=== PATIENT | male | born 1985 | race Caucasian/White ===

== ENCOUNTER → 2018-04-01 16:01 | Outpatient (CLI) | payer OTHER, SELFPAY ==
--- NOTE | 2018-04-01 16:03 | DI.US.S_ITS ---
PROCEDURE: US ABDOMEN LIMITED INDICATIONS: Soft tissue mass right LQ inguinal area TECHNIQUE: Real-time focused scanning was performed of the abdomen, with image documentation. COMPARISON: None. FINDINGS: Isoechoic mass is present within the subcutaneous soft tissues of the right inguinal region measuring 3.2 x 1.7 x 2.0 cm. IMPRESSION: Subcutaneous isoechoic avascular mass within the subcutaneous soft tissues of the right inguinal canal which may represent a lipoma given the appearance, although findings are nonspecific and differential include both benign or malignant etiology. Recommend clinical correlation and followup. Dictated by: Alexei SHEETS Interpreted: Alex Santos MD on 04/01/2018 at 16:37 Approved by: Aelx Santos M.D. on 04/01/2018 at 16:49
== END ==
PROVIDERS: PCP Physician Assistant; Visit Provider Physician Assistant
DX: M79.9 Soft tissue disorder, unspecified (principal); R22.2 Localized swelling, mass and lump, trunk
CPT/HCPCS: 76705

== ENCOUNTER 2018-12-22 10:21 | Emergency (ER) | payer OTHER, SELFPAY ==
--- NOTE | 2018-12-22 10:29 | DI.RAD.S_ITS ---
PROCEDURE: XR KNEE RT 3V INDICATIONS: injury pain TECHNIQUE: 3 views of the knee were acquired. COMPARISON: None. FINDINGS: Bones: No fractures or dislocations. No suspicious bony lesions. Soft tissues: Moderate-sized suprapatellar joint effusion. No suspicious soft tissue calcifications. IMPRESSION: Moderate-sized joint effusion without underlying fracture or dislocation. Consider outpatient MRI for further evaluation if there is persistent clinical concern for internal soft tissue derangement. Dictated by: Derek Banks M.D. on 12/22/2018 at 11:26 Approved by: Derek Banks M.D. on 12/22/2018 at 11:26
[2018-12-22 10:30] VITALS: BP 130/88; PULSE 75; RESP 16; TEMP 37.1; O2SAT 97; BMI 41.5
--- NOTE | 2018-12-22 10:42 | ED.LOWEXIN ---
HPI - Extremity Injury (Lower) General Chief Complaint: Extremity Injury, Lower Stated Complaint: RT KNEE PAIN Time Seen by Provider: 12/22/18 10:42 Source: patient Mode of arrival: ambulatory Limitations: no limitations History of Present Illness HPI Narrative: The patient torqued his right knee stepping out of his truck yesterday. He is unsure what happened but he felt like the knee with the wrong way, he is not sure which way the knee twisted. He continued to work yesterday. His pain and swelling to the right knee now, he cannot stand and walk. He has swelling to the knee, he has no prior injuries to the knee. Is no numbness or weakness in the right leg. There were no other injuries. Related Data Home Medications Medication Instructions Recorded Confirmed ibuprofen 800 mg PO PRN PRN #0 09/04/17 Previous Rx's Medication Instructions Recorded dextroamphetamine-amphetamine ER 10 mg PO QAM #10 cap 03/25/18 10 mg 24hr capsule,extend release fenofibrate micronized 134 mg 134 mg PO HS #90 cap 03/25/18 capsule ibuprofen 800 mg PO Q6-8H PRN #60 tab 12/22/18 Allergies Allergy/AdvReac Type Severity Reaction Status Date / Time No Known Drug Allergies Allergy Verified 12/22/18 10:30 Review of Systems Constitutional Denies chills, Denies fever(s), Denies lethargy and Denies weakness Musculoskeletal Denies numbness and Reports other (Right knee pain and swelling) Integumentary/Breasts Denies lesions and Denies rash Neurologic Denies numbness and Denies weakness [facility] Medical History Morbid obesity with BMI of 40.0-44.9, adult (Acute) ADHD (attention deficit hyperactivity disorder) (Chronic Unknown) Hyperlipemia (Chronic Unknown) Surgical History History of tonsillectomy Family History Mother Age: 49 Skin cancer of face Cerebrovascular accident (CVA), unspecified mechanism Social History Smoking Status: Never smoker Family History Mother Age: 49 Skin cancer of face Cerebrovascular accident (CVA), unspecified mechanism Social History Smoking Status: Never smoker Exam Initial Vital Signs Initial Vital Signs: Vital Signs Temperature 98.8 F 12/22/18 10:30 Pulse Rate 75 12/22/18 10:30 Respiratory Rate 16 12/22/18 10:30 Blood Pressure 130/88 12/22/18 10:30 Pulse Oximetry 97 12/22/18 10:30 Const General: cooperative and well developed Nutritional Appearance: well nourished Orientation: alert, awake and oriented x3 Extrem General: full ROM, no pedal edema and no calf tenderness Other: The right knee is tender and swollen. Range of motion is 0-90 degrees. There is no ACL laxity. Anterior drawer is negative. He has no MCL tenderness. He has LCL tenderness without laxity. The tenderness is in the joint line. Procedures Orthopedic Splinting/Casting Injury #1: Side: right Lower Extremity Injury Location: knee Lower Extremity Immobilizer: knee immobilizer Post splinting neuro exam: intact Post splinting vascular exam: intact Placed by: Nursing Course Orders Ordered: ED Orders 12/22/18 10:29 XR knee RT 3V Stat Discontinued Medications Ketorolac Tromethamine (Toradol) 60 mg IM NOW ONE Stop: 12/22/18 11:38 Last Admin: 12/22/18 11:55 Dose: 60 mg Vital Signs - 8 hr 12/22/18 10:30 12/22/18 12:12 Temperature 98.8 F Pulse Rate 75 86 Respiratory Rate 16 16 Blood Pressure 130/88 Blood Pressure [Right Arm] 114/71 Pulse Oximetry 97 98 MDM - Extremity Injury (Lower) Imaging Data Right knee XR:: Radiologist's impression: [address] [address] XRay Report Signed Patient: Kia Card#: [id number] : 1985Acct:[id number] Age/Sex: 33 / MDate of Service: 12/22/18 Loc: ED Accession Number: [id number] Procedure: XR knee RT 3V Ordering Provider: Juan Carlos Villarreal M.D. PROCEDURE: XR KNEE RT 3V INDICATIONS: injury pain TECHNIQUE: 3 views of the knee were acquired. COMPARISON: None. FINDINGS: Bones: No fractures or dislocations. No suspicious bony lesions. Soft tissues: Moderate-sized suprapatellar joint effusion. No suspicious soft tissue calcifications. IMPRESSION: Moderate-sized joint effusion without underlying fracture or dislocation. Consider outpatient MRI for further evaluation if there is persistent clinical concern for internal soft tissue derangement. Dictated by: Derek Banks M.D. on 12/22/2018 at 11:26 Approved by: Derek Banks M.D. on 12/22/2018 at 11:26 Discharge Plan Departure Patient Disposition: Home Clinical Impression: Sprain of LCL (lateral collateral ligament) of knee Qualifiers: Encounter type: initial encounter Laterality: right Qualified Code(s): S83.421A - Sprain of lateral collateral ligament of right knee, initial encounter Instructions: DI for Knee Sprain Activity Restrictions/Additional Instructions: Keep the knee immobilizer for the next several days, until you feel you have improved. Apply ice to the knee frequently for the next 2 days. Motrin 8 milligrams every 6 hours as needed for pain. Follow-up with her doctor next week, or the local orthopedic surgeon. I will give you contact information for Dr. Finnegan. Return to the ER as needed. Prescriptions: New ibuprofen 800 mg tablet 800 mg PO Q6-8H PRN (Reason: pain) Qty: 60 RF: 0 No Action fenofibrate micronized 134 mg capsule 134 mg PO HS Qty: 90 RF: 3 dextroamphetamine-amphetamine [Adderall XR] 10 mg capsule,extended release 24hr 10 mg PO QAM Qty: 10 RF: 0 ibuprofen 800 MG tablet 800 mg PO PRN PRNQty: 0 RF: 0 Referrals: Aurora Kohler PA-C [Primary Care Provider] - Jus Finnegan MD [Physician] - Stand Alone Forms: Work Release Note
--- NOTE | 2018-12-22 11:10 | PC.NURSE ---
Possible hyperextension injury since yesterday day at work. Noticed swelling in around the patella and c/o pain with movements, wt bearing. +CMS intact.
[2018-12-22] MEDS: KETOROLAC 60 MG/2 ML VIAL IM (11:55)
[2018-12-22 12:12] VITALS: BP 114/71; PULSE 86; RESP 16; O2SAT 98
--- NOTE | 2018-12-22 13:35 | PC.NURSE ---
1336 left ms for pt that they left without their written prescription, asked for them to call us
--- NOTE | 2018-12-22 14:32 | PC.NURSE ---
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
== END 2018-12-22 12:51 | disposition home or self-care (01) ==
PROVIDERS: Emergency Provider Emergency Medicine; PCP Physician Assistant
DX: S83.421A Sprain of lateral collateral ligament of right knee, initial encounter (principal); W18.43XA Slipping, tripping and stumbling without falling due to stepping from one level to another, initial encounter; Y99.0 Civilian activity done for income or pay
CPT/HCPCS: 73562; 96372; 99283; J1885

== ENCOUNTER → 2019-03-05 12:09 | Outpatient (CLI) | payer BC, SELFPAY ==
--- NOTE | 2019-03-05 12:19 | DI.RAD.S_ITS ---
PROCEDURE: XR ELBOW RT MIN 3V INDICATIONS: acute pain, swelling TECHNIQUE: 3 views of the elbow were acquired. COMPARISON: None. FINDINGS: Suboptimal evaluation secondary to difficulty with patient positioning, reportedly due to severe pain Bones: No fractures or dislocations. No suspicious bony lesions. Soft tissues: No elbow joint effusion. No suspicious soft tissue calcifications. IMPRESSION: No fracture. If the patient's symptoms do not improve recommend followup radiographs in 10 days to assess for healing sclerosis/occult injury. Dictated by: Josh Mariee M.D. on 03/05/2019 at 16:30 Approved by: Josh Mariee M.D. on 03/05/2019 at 16:31
[2019-03-05 12:59] LABS: Add Manual Diff / Slide Review NO; Basophils Absolute Auto 100 /uL (0-100); Eosinophils Absolute Auto 100 /uL (0-450); Eosinophils Percent Auto 0.8 % (2-4); Hematocrit 41.9 % (41-53); Lymphocytes Absolute Auto 2000 /uL (1100-4500); Lymphocytes Percent Auto 17.8 % (25-40); Mean Corpuscular HGB Conc 33.5 % (30-36); Mean Corpuscular Hemoglobin 27.8 PG (26-34); Mean Corpuscular Volume 83.1 fL (80-100); Monocytes Absolute Auto 800 /uL (0-900); Monocytes Percent Auto 6.9 % (3-14); Neutrophils Absolute Auto 8300 /uL (1500-7000); Neutrophils Percent Auto 73.5 % (50-75); Platelet Count 285 X10^3/uL (150-400); Red Blood Cell Count 5.04 X10^6/uL (4.5-5.9); Red Cell Distribution Width 14.6 % (11.6-14.8); White Blood Cell Count 11.4 X10^3/uL (4.5-11.0)
[2019-03-05 13:52] LABS: Uric Acid 9.4 mg/dL (3.5-8.5)
[2019-03-05 14:00] LABS: Erythrocyte Sedimentation Rate 42 MM/HR (0-15)
== END ==
PROVIDERS: PCP Physician Assistant; Visit Provider Nurse Practitioner Family
DX: M25.421 Effusion, right elbow (principal); M25.521 Pain in right elbow
CPT/HCPCS: 36415; 73080; 84550; 85025; 85651; 86140

== ENCOUNTER → 2020-02-20 11:32 | Outpatient (CLI) | payer BC, SELFPAY ==
[2020-02-20 12:07] LABS: Alanine Aminotransferase 89 IU/L (<50); Albumin 4.9 g/dL (3.5-5.0); Albumin Globulin Ratio 1.4 (1.0-2.8); Alkaline Phosphatase 77 U/L (38-126); Aspartate Aminotransferase 46 IU/L (17-59); BUN Creatinine Ratio 19.5 (6-22); Bilirubin Total 0.5 mg/dL (0.2-1.3); Blood Urea Nitrogen 15 mg/dL (9-20); Calcium 9.9 mg/dL (8.4-10.2); Carbon Dioxide 28 mmol/L (22-32); Chloride 103 mmol/L (98-107); Estimated Glomerular Filt Rate > 60.0 mL/min (>60); Globulin 3.4 g/dL (1.7-4.1); Glucose 101 mg/dL (70-100); HEMOLYSIS < 15 (0-50); Potassium 4.3 mmol/L (3.4-5.1); Sodium 139 mmol/L (137-145); Total Protein 8.3 g/dL (6.3-8.2)
[2020-02-20 12:22] LABS: Erythrocyte Sedimentation Rate 36 MM/HR (0-15)
== END ==
PROVIDERS: PCP Family Medicine; Referring Provider Family Medicine; Visit Provider Family Medicine
DX: M10.9 Gout, unspecified (principal)
CPT/HCPCS: 36415; 80053; 84550; 85651

== ENCOUNTER → 2022-09-04 14:55 | Outpatient (CLI) | payer BC, SELFPAY ==
[2022-09-04 15:41] LABS: Add Manual Diff / Slide Review NO; Basophils Absolute Auto 100 /uL (0-100); Basophils Percent Auto 0.7 % (0-2); Eosinophils Absolute Auto 100 /uL (0-450); Eosinophils Percent Auto 1.3 % (2-4); Hematocrit 40.5 % (41-53); Hemoglobin 13.5 g/dL (13.5-17.5); Lymphocytes Absolute Auto 2400 /uL (1100-4500); Lymphocytes Percent Auto 24.2 % (25-40); Mean Corpuscular HGB Conc 33.3 % (30-36); Mean Corpuscular Hemoglobin 27.6 PG (26-34); Mean Corpuscular Volume 82.8 fL (80-100); Monocytes Absolute Auto 600 /uL (0-900); Monocytes Percent Auto 6.3 % (3-14); Neutrophils Absolute Auto 6600 /uL (1500-7000); Neutrophils Percent Auto 67.5 % (50-75); Platelet Count 404 X10^3/uL (150-400); Red Blood Cell Count 4.89 X10^6/uL (4.5-5.9); Red Cell Distribution Width 13.9 % (11.6-14.8); White Blood Cell Count 9.8 X10^3/uL (4.5-11.0)
[2022-09-04 15:58] LABS: Erythrocyte Sedimentation Rate 3 MM/HR (0-15)
[2022-09-04 16:03] LABS: Alanine Aminotransferase 69 IU/L (<50); Albumin 4.6 g/dL (3.5-5.0); Albumin Globulin Ratio 1.2 (1.0-2.8); Alkaline Phosphatase 80 U/L (38-126); Aspartate Aminotransferase 38 IU/L (17-59); BUN Creatinine Ratio 20.2 (6-22); Bilirubin Total 0.5 mg/dL (0.2-1.3); Blood Urea Nitrogen 17 mg/dL (9-20); Calcium 9.2 mg/dL (8.4-10.2); Carbon Dioxide 29 mmol/L (22-32); Chloride 103 mmol/L (98-107); Cholesterol 214 mg/dL (140-199); Estimated Glomerular Filt Rate > 60 mL/min (>60); Globulin 3.9 g/dL (1.7-4.1); Glucose 95 mg/dL (70-100); HDL Cholesterol 26 mg/dL (40-60); HEMOLYSIS < 15 (0-50); LDL Cholesterol Calculated 126 mg/dL (<100); Potassium 3.8 mmol/L (3.4-5.1); Sodium 142 mmol/L (137-145); Total Protein 8.5 g/dL (6.3-8.2); Triglycerides 309 mg/dL (35-150); Uric Acid 10.8 mg/dL (3.5-8.5)
[2022-09-04 16:32] LABS: TSH w/ Reflex to FT4 2.38 uIU/mL (0.47-4.68)
== END ==
PROVIDERS: PCP Family Medicine; Referring Provider Family Medicine; Visit Provider Family Medicine
DX: E78.1 Pure hyperglyceridemia (principal); M10.9 Gout, unspecified
CPT/HCPCS: 36415; 80053; 80061; 84443; 84550; 85025; 85651

== ENCOUNTER → 2023-05-30 07:50 | Outpatient (CLI) | payer OTHER, BC, SELFPAY ==
--- NOTE | 2023-05-30 07:52 | DI.RAD.S_ITS ---
PROCEDURE: XR SHOULDER LT MIN 2V INDICATIONS: fall on left shoulder TECHNIQUE: 3 views of the shoulder were acquired. COMPARISON: None. FINDINGS: Bones: No fractures or dislocations. No suspicious bony lesions. Visualized ribs appear intact. Soft tissues: No suspicious soft tissue calcifications. IMPRESSION: Unremarkable radiographic examination of left shoulder. Dictated by: Francisco Javier Keen M.D. on 05/30/2023 at 15:24 Approved by: Francisco Javier Keen M.D. on 05/30/2023 at 15:24
== END ==
PROVIDERS: PCP Family Medicine; Referring Provider Nurse Practitioner Family; Visit Provider Nurse Practitioner Family
DX: S46.912A Strain of unspecified muscle, fascia and tendon at shoulder and upper arm level, left arm, initial encounter (principal); W19.XXXA Unspecified fall, initial encounter
CPT/HCPCS: 73030

== ENCOUNTER → 2023-12-06 13:48 | Outpatient (CLI) | payer OTHER, SELFPAY ==
--- NOTE | 2023-12-06 13:49 | DI.RAD.S_ITS ---
PROCEDURE: XR ANKLE RT MIN 3V INDICATIONS: R heel pain/strain, ankle pain TECHNIQUE: 3 views of the ankle were acquired. COMPARISON: None. FINDINGS: Bones: No fractures or dislocations. Ankle mortise is normally aligned. No suspicious bony lesions. Soft tissues: No tibiotalar joint effusion. Achilles tendon appears normal. IMPRESSION: No acute bony abnormality or significant effusion. Dictated by: Melida Oliva MD, PhD on 12/06/2023 at 14:17 Approved by: Melida Oliva MD, PhD on 12/06/2023 at 14:17
== END ==
PROVIDERS: PCP Family Medicine; Referring Provider Physician Assistant Surgical; Visit Provider Physician Assistant Surgical
DX: M79.671 Pain in right foot (principal)
CPT/HCPCS: 73610

== ENCOUNTER → 2023-12-17 11:03 | Outpatient (CLI) | payer OTHER, SELFPAY ==
[2023-12-17 12:11] LABS: Alanine Aminotransferase 73 IU/L (<50); Albumin 4.7 g/dL (3.5-5.0); Albumin Globulin Ratio 1.3 (1.0-2.8); Alkaline Phosphatase 88 U/L (38-126); Aspartate Aminotransferase 37 IU/L (17-59); BUN Creatinine Ratio 23.4 (6-22); Bilirubin Total 0.5 mg/dL (0.2-1.3); Blood Urea Nitrogen 18 mg/dL (9-20); Calcium 9.7 mg/dL (8.4-10.2); Carbon Dioxide 22 mmol/L (22-32); Chloride 104 mmol/L (98-107); Estimated Glomerular Filt Rate > 60 mL/min (>60); Globulin 3.7 g/dL (1.7-4.1); Glucose 95 mg/dL (70-100); HEMOLYSIS < 15 (0-50); Potassium 4.8 mmol/L (3.4-5.1); Sodium 139 mmol/L (137-145); Total Protein 8.4 g/dL (6.3-8.2); Uric Acid 10.1 mg/dL (3.5-8.5)
[2023-12-17 12:26] LABS: Erythrocyte Sedimentation Rate 10 MM/HR (0-15)
== END ==
PROVIDERS: PCP Family Medicine; Referring Provider Family Medicine; Visit Provider Family Medicine
DX: M10.9 Gout, unspecified (principal); M76.60 Achilles tendinitis, unspecified leg
CPT/HCPCS: 36415; 80053; 83036; 84550; 85651

== ENCOUNTER → 2024-04-28 13:49 | Outpatient (CLI) | payer OTHER, SELFPAY ==
--- NOTE | 2024-04-28 13:50 | DI.RAD.S_ITS ---
PROCEDURE: XR KNEE RT 3V INDICATIONS: Right knee pain TECHNIQUE: 3 views of the knee were acquired. COMPARISON: [facility], , XR KNEE RT 3V, 12/22/2018, 10:38. FINDINGS: Bones: Possible early arthrosis. No high-grade degenerative changes. No acute displaced fracture or dislocation. Soft tissues: Slight lateral patellar tilt. Moderate joint effusion. IMPRESSION: Possible early arthrosis. No acute radiographic abnormality. Moderate joint effusion, raising concern for internal derangement, which could be further evaluated with MRI. Slight lateral patellar tilt. Dictated by: Edward Rollins M.D. on 04/28/2024 at 14:15 Approved by: Edward Rollins M.D. on 04/28/2024 at 14:16
== END ==
PROVIDERS: PCP Family Medicine; Referring Provider Registered Nurse; Visit Provider Registered Nurse
DX: M25.561 Pain in right knee (principal); M25.461 Effusion, right knee
CPT/HCPCS: 73562

== ENCOUNTER → 2024-09-26 08:26 | Outpatient (CLI) | payer OTHER, SELFPAY ==
[2024-09-26 09:41] LABS: Add Manual Diff / Slide Review NO; Basophils Absolute Auto 100 /uL (0-100); Basophils Percent Auto 0.5 % (0-2); Eosinophils Absolute Auto 200 /uL (0-450); Eosinophils Percent Auto 1.8 % (2-4); Hematocrit 42.2 % (41-53); Hemoglobin 14.4 g/dL (13.5-17.5); Lymphocytes Absolute Auto 2100 /uL (1100-4500); Lymphocytes Percent Auto 22.6 % (25-40); Mean Corpuscular Hemoglobin 28.9 PG (26-34); Mean Corpuscular Volume 84.9 fL (80-100); Monocytes Absolute Auto 600 /uL (0-900); Monocytes Percent Auto 6.5 % (3-14); Neutrophils Absolute Auto 6400 /uL (1500-7000); Neutrophils Percent Auto 68.6 % (50-75); Platelet Count 282 X10^3/uL (150-400); Red Blood Cell Count 4.97 X10^6/uL (4.5-5.9); Red Cell Distribution Width 14.8 % (11.6-14.8); White Blood Cell Count 9.3 X10^3/uL (4.5-11.0)
[2024-09-26 11:03] LABS: Alanine Aminotransferase 108 IU/L (<50); Albumin 4.3 g/dL (3.5-5.0); Albumin Globulin Ratio 1.3 (1.0-2.8); Alkaline Phosphatase 92 U/L (38-126); Aspartate Aminotransferase 73 IU/L (17-59); BUN Creatinine Ratio 18.7 (6-22); Bilirubin Total 0.4 mg/dL (0.2-1.3); Blood Urea Nitrogen 14 mg/dL (9-20); Calcium 9.2 mg/dL (8.4-10.2); Carbon Dioxide 26 mmol/L (22-32); Chloride 106 mmol/L (98-107); Cholesterol 221 mg/dL (140-199); Estimated Glomerular Filt Rate > 60 mL/min (>60); Globulin 3.2 g/dL (1.7-4.1); Glucose 116 mg/dL (70-100); HDL Cholesterol 25 mg/dL (40-60); HEMOLYSIS < 15 (0-50); LDL Cholesterol Calculated 140 mg/dL (<100); Potassium 4.2 mmol/L (3.4-5.1); Sodium 139 mmol/L (137-145); Total Protein 7.5 g/dL (6.3-8.2); Triglycerides 281 mg/dL (35-150); Uric Acid 6.7 mg/dL (3.5-8.5)
[2024-09-26 11:09] LABS: Erythrocyte Sedimentation Rate 35 MM/HR (0-15)
== END ==
PROVIDERS: PCP Family Medicine; Referring Provider Family Medicine; Visit Provider Family Medicine
DX: M1A.00X0 Idiopathic chronic gout, unspecified site, without tophus (tophi) (principal); E78.1 Pure hyperglyceridemia
CPT/HCPCS: 36415; 80053; 80061; 84550; 85025; 85651

== ENCOUNTER → 2025-08-22 10:49 | Outpatient (CLI) | payer OTHER, SELFPAY ==
[2025-08-22 11:46] LABS: Hemoglobin A1C% w Est Avg Glu 6.2 % (4.0-6.0)
[2025-08-22 12:23] LABS: Alanine Aminotransferase 110 IU/L (<50); Albumin 4.6 g/dL (3.5-5.0); Albumin Globulin Ratio 1.5 (1.0-2.8); Alkaline Phosphatase 79 U/L (38-126); Blood Urea Nitrogen 14 mg/dL (9-20); Calcium 9.4 mg/dL (8.4-10.2); Carbon Dioxide 27 mmol/L (22-32); Chloride 103 mmol/L (98-107); Cholesterol 218 mg/dL (140-199); Estimated Glomerular Filt Rate > 60 mL/min (>60); Globulin 3.0 g/dL (1.7-4.1); Glucose 104 mg/dL (70-99); HDL Cholesterol 32 mg/dL (40-60); HEMOLYSIS < 15 (0-50); Potassium 4.5 mmol/L (3.4-5.1); Sodium 140 mmol/L (137-145); Total Protein 7.6 g/dL (6.3-8.2); Triglycerides 340 mg/dL (35-150); Uric Acid 9.3 mg/dL (3.5-8.5)
[2025-08-22 12:52] LABS: TSH w/ Reflex to FT4 2.37 uIU/mL (0.47-4.68)
== END ==
PROVIDERS: PCP Family Medicine; Referring Provider Family Medicine; Visit Provider Family Medicine
DX: Z00.00 Encounter for general adult medical examination without abnormal findings (principal); M10.9 Gout, unspecified; E78.1 Pure hyperglyceridemia
CPT/HCPCS: 36415; 80053; 80061; 83036; 84443; 84550